=== PATIENT | male | born 1950 | race Caucasian/White ===

== ENCOUNTER 2025-04-29 13:41 | Inpatient (IN) | payer MEDICARE, OTHER ==
[~2025-04-29] VITALS: Ht 165.1 cm; Wt 79.4 kg
[2025-04-29 13:44] VITALS: O2SAT 95
[2025-04-29] MEDS: SODIUM CHLORIDE 0.9% 1,000 ML IV ONE (14:25)
[2025-04-29] MEDS: CEFTRIAXONE 1GM/50ML 50 ML IV ONE (14:27)
[2025-04-29 14:57] LABS: BASOPHILS % 1.1 % (0.0-2.0); EOSINOPHILS % 0.6 % (0.0-5.0); HEMATOCRIT. 33.8 % (42.0-52.0); HEMOGLOBIN. 11.5 g/dL (14.0-18.0); LYMPHOCYTES % 13.4 % (20.0-50.0); MEAN PLATELET VOLUME 8.6 fl (7.4-10.4); MONOCYTES % 7.5 % (2.0-8.0); NEUTROPHILS % 77.4 % (40.0-76.0); PLATELET 223 x1000/uL (130-400); RED BLOOD CELL COUNT 4.02 mill/uL (4.7-6.1); RED CELL DISTRIBUTION WIDTH 20.6 % (11.6-14.6)
[2025-04-29 14:58] LABS: ASPARTATE AMINOTRANSFERASE 12 IU/L (<34); BILIRUBIN DIRECT < 0.1 mg/dL (<=3.0); CREATININE 1.3 mg/dL (0.6-1.3)
[2025-04-29 14:59] LABS: BILIRUBIN TOTAL 0.5 mg/dL (0.1-1.0); PROTEIN TOTAL 6.3 g/dL (6.0-8.3); UREA NITROGEN BLOOD 38 mg/dL (9-23)
[2025-04-29 15:00] LABS: TROPONIN I HIGH SENSITIVITY 7 ng/L (3.0-53)
[2025-04-29 15:01] LABS: INR 0.9
[2025-04-29] MEDS: MORPHINE SULFATE 2 MG/ML INJ (NOT FOR IM USE) IV ONE (15:15)
[2025-04-29] MEDS: POTASSIUM CHLORIDE 20MEQ TABLET SR PO ONE (15:32)
[2025-04-29] MEDS: AZITHROMYCIN 500MG/250ML 250 ML IV STA (15:41)
[2025-04-29 16:41] LABS: CLARITY URINE CLEAR (CLEAR); COLOR URINE YELLOW (YELLOW); GLUCOSE URINE 3+ (NEGATIVE); KETONES URINE TRACE (NEGATIVE); LEUKOCYTE ESTERASE URINE NEGATIVE (NEGATIVE); NITRITE URINE NEGATIVE (NEGATIVE); OCCULT BLOOD URINE NEGATIVE (NEGATIVE); PH URINE 7.0 (4.5-8.0); PROTEIN URINE NEGATIVE (NEGATIVE); SPECIFIC GRAVITY URINE 1.020 (1.005-1.030); UROBILINOGEN URINE 0.2 E.U./dL (0.2-1.0)
[2025-04-29 17:10] LABS: BACTERIA URINE TRACE; RBC URINE 0-2 /hpf (0-2); SQUAMOUS EPITHELIAL CELL URINE RARE /lpf (RARE/1+); WBC URINE 0-2 /hpf (0-2)
[2025-04-29 18:10] VITALS: BP 129/75; PULSE 96; RESP 22; TEMP 37.2; O2SAT 98
[2025-04-29 18:30] VITALS: BP 129/75; PULSE 102; RESP 13; TEMP 37.1408
[2025-04-29] MEDS ORDERED: DEXTROSE 50% WATER 50ML SYRINGE IV PRN (19:00)
[2025-04-29 20:00] VITALS: BP 121/68; PULSE 98; RESP 21; TEMP 36.4; O2SAT 96
[2025-04-29] MEDS ORDERED: NALOXONE HCL 0.4MG/ML VIAL IV PRN (20:45)
[2025-04-29] MEDS: ATORVASTATIN CALCIUM 40MG TABLET PO SCH (20:46)
[2025-04-29] MEDS: INSULIN LISPRO 100 UNITS/ML SUBCUT SCH (20:48)
[2025-04-29] MEDS: BLOOD SUGAR DIAGNOSTIC STRIP TEST SCH (20:48)
[2025-04-29] MEDS: METOPROLOL TARTRATE 50MG TABLET PO SCH (20:50)
[2025-04-29] MEDS: HYDROCODONE/ACETAMINOPHEN 10/325MG TABLET PO PRN (20:50)
[2025-04-29 21:46] LABS: HEMATOCRIT. 33.6 % (42.0-52.0); HEMOGLOBIN. 11.3 g/dL (14.0-18.0); MEAN PLATELET VOLUME 8.6 fl (7.4-10.4); PLATELET 215 x1000/uL (130-400); RED BLOOD CELL COUNT 3.97 mill/uL (4.7-6.1); RED CELL DISTRIBUTION WIDTH 20.0 % (11.6-14.6)
[2025-04-29 22:00] LABS: CREATININE 1.1 mg/dL (0.6-1.3); UREA NITROGEN BLOOD 30 mg/dL (9-23)
[2025-04-29 22:01] LABS: LDL CHOLESTEROL 131 mg/dL (5-100); TROPONIN I HIGH SENSITIVITY 10 ng/L (3.0-53)
[2025-04-29 22:10] LABS: TRIGLYCERIDE 1383 mg/dL (0-150)
[2025-04-29 22:19] LABS: EOSINOPHILS % MANUAL 2.0 % (0.0-5.0); LYMPHOCYTES % MANUAL 18.0 % (20.0-50.0); MONOCYTES % MANUAL 6.0 % (2.0-8.0); NEUTROPHILS % MANUAL 74.0 % (45.0-75.0); PLATELET ESTIMATE NORMAL
[2025-04-30] VITALS: BP 117/65; PULSE 76; RESP 14; TEMP 36.7; O2SAT 95
[2025-04-30 04:00] VITALS: BP 133/68; PULSE 99; RESP 20; TEMP 36.6; O2SAT 96
[2025-04-30] MEDS ORDERED: OXYC1TAB10 (05:53)
[2025-04-30] MEDS ORDERED: HYDR25TA MT (05:53)
[2025-04-30] MEDS ORDERED: OMEG-221 MT (05:53)
[2025-04-30] MEDS ORDERED: FURO40TA5 PO (05:53)
[2025-04-30] MEDS ORDERED: TAMS-54 MT (05:53)
[2025-04-30] MEDS ORDERED: OMEP20CA14 MT (05:53)
[2025-04-30] MEDS ORDERED: GABA-1180 MT (05:53)
[2025-04-30] MEDS ORDERED: IBUP-2030 MT (05:53)
[2025-04-30] MEDS ORDERED: FERR325T30 PO (05:53)
[2025-04-30] MEDS ORDERED: EMPA1TAB34 (05:53)
[2025-04-30 07:31] LABS: TROPONIN I HIGH SENSITIVITY 8 ng/L (3.0-53)
[2025-04-30 08:00] VITALS: BP 126/69; PULSE 96; RESP 13; TEMP 36.8; O2SAT 99
[2025-04-30] MEDS: ASPIRIN 81MG TABLET PO SCH (09:16)
[2025-04-30] MEDS: METFORMIN HCL 500MG TABLET PO SCH (09:19)
[2025-04-30 12:00] VITALS: BP 132/76; PULSE 90; RESP 12; TEMP 37.1; O2SAT 99
[2025-04-30 16:00] VITALS: BP 131/68; PULSE 97; RESP 13; TEMP 37; O2SAT 100
[2025-04-30] MEDS: CEFTRIAXONE 1GM/50ML 50 ML IV SCH (16:41)
[2025-04-30] MEDS: ENOXAPARIN 40MG/0.4ML SYR SUBCUT SCH (16:41)
[2025-04-30] MEDS: AZITHROMYCIN 500 MG TABLET PO SCH (16:41)
[2025-04-30 18:55] LABS: TROPONIN I HIGH SENSITIVITY 15 ng/L (3.0-53)
[2025-04-30 20:00] VITALS: BP 131/75; PULSE 102; RESP 14; TEMP 36.8; O2SAT 95
[2025-05-01] VITALS: BP 114/94; PULSE 91; RESP 16; TEMP 36.9; O2SAT 96
[2025-05-01 04:00] VITALS: BP 135/87; PULSE 112; RESP 16; TEMP 36.8; O2SAT 95
[2025-05-01 08:00] VITALS: BP 117/77; PULSE 123; RESP 17; TEMP 37.1; O2SAT 96
[2025-05-01 12:00] VITALS: BP 121/65; PULSE 110; RESP 17; TEMP 36.8; O2SAT 97
[2025-05-01 16:00] VITALS: BP 131/70; PULSE 110; RESP 17; TEMP 36.6; O2SAT 97
[2025-05-01] MEDS: MEGESTROL ACETATE 400 MG/10 ML UDC PO SCH (18:53)
[2025-05-01 20:00] VITALS: BP 132/82; PULSE 106; RESP 16; TEMP 36.7; O2SAT 95
[2025-05-01] MEDS: LORAZEPAM 0.5MG TABLET PO PRN (21:18)
[2025-05-02] VITALS: BP 110/62; PULSE 87; RESP 21; TEMP 36.8; O2SAT 97
[2025-05-02 04:00] VITALS: BP 128/68; PULSE 91; RESP 21; TEMP 36.7; O2SAT 93
[2025-05-02 08:00] VITALS: BP 130/84; PULSE 103; RESP 20; TEMP 36.9; O2SAT 97
[2025-05-02] MEDS ORDERED: LEVO750T68 MT (08:58)
[2025-05-02 09:29] LABS: CREATININE 1.0 mg/dL (0.6-1.3); UREA NITROGEN BLOOD 21 mg/dL (9-23)
[2025-05-02 12:00] VITALS: BP 112/77; PULSE 103; RESP 19; TEMP 36.9; O2SAT 97
[2025-05-02 12:30] VITALS: BP 97/72; PULSE 98; RESP 20; TEMP 98.4
[2025-05-02 16:00] VITALS: BP 111/76; PULSE 102; RESP 11; TEMP 36.7; O2SAT 97
== END 2025-05-02 18:32 | disposition home health service (06) | DRG 637 ==
LOC: ER 13:41 → EDBEDREQ 17:07 → EDBEDREQTM 17:07 → ENRESERV 17:13 → 3WST 18:21
PROVIDERS: ADMIT Internal Medicine; ATTEND Internal Medicine
DX: E11.65 Type 2 diabetes mellitus with hyperglycemia (principal); J18.9 Pneumonia, unspecified organism; E87.6 Hypokalemia; D64.9 Anemia, unspecified; I10 Essential (primary) hypertension; Z20.822 Contact with and (suspected) exposure to COVID-19; N40.0 Benign prostatic hyperplasia without lower urinary tract symptoms; Z86.73 Personal history of transient ischemic attack (TIA), and cerebral infarction without residual deficits; Z86.16 Personal history of COVID-19; Z79.84 Long term (current) use of oral hypoglycemic drugs
CPT/HCPCS: 36415; 71045; 74176; 80048; 80061; 80076; 81003; 82010; 82962; 83605; 83735; 83880; 84145; 84484; 85025; 87426; 93005; 93970; 97162; 97530; 99291; A4606; J0456; J0696; J1650; J1815; J2270; J7030